=== PATIENT | male | born 1965 | race Caucasian/White ===

== ENCOUNTER 2019-01-10 16:40 | Emergency (ER) | payer OTHER ==
[2019-01-10 16:50] VITALS: TEMP 99.2
[2019-01-10] MEDS ORDERED: IPRATROPIUM-ALBUTEROL 3 ML NEB INHALATION STA (17:08)
[2019-01-10] MEDS ORDERED: methylPREDNISolone SOD SUCCI 125 MG/2 ML VIAL IM ONE (17:08)
--- NOTE | 2019-01-10 17:16 | ED ---
General Adult HPI - General Chief complaint: Shortness of Breath Stated complaint: cough, congestion, shoulder pain Time Seen by Provider: 01/10/19 16:50 Source: patient, RN notes reviewed, old records reviewed Mode of arrival: ambulatory Limitations: no limitations - History of Present Illness Initial comments: This is a 53-year-old male who presents emergency Department with a past medical history significant for smoking. Patient states his is been sick with a upper respiratory infection last few days and the last couple of days he has also started having symptoms. Patient states he short of breath having a cough and coughing up some sputum. Patient states his thought he had a fever last evening. Patient denies any chest pain or palpitations. Patient denies any abdominal pain. Patient states he did not get a flu shot. Patient denies any nausea vomiting or diarrhea. Patient denies any leg swelling or calf tenderness. - Related Data Home Medications Medication Instructions Recorded Confirmed ALPRAZolam [Xanax] 2 mg PO HS 06/22/14 05/31/15 oxyCODONE-APAP 10-325MG [Percocet 10 mg PO Q6HR PRN 06/22/14 05/31/15 10-325] Previous Rx's Medication Instructions Recorded HYDROcodone/APAP 7.5-325MG [[place] 1 each PO Q4H PRN #60 tab 05/31/15 7.5] Azithromycin [Zithromax Tri-Arnaud] 500 mg PO DAILY #3 tab 01/10/19 predniSONE 40 mg PO DAILY #8 tab 01/10/19 Allergies Allergy/AdvReac Type Severity Reaction Status Date / Time tramadol AdvReac Hallucinati Verified 01/10/19 16:50 ons Review of Systems ROS Statement: Those systems with pertinent positive or pertinent negative responses have been documented in the HPI. ROS Other: All systems not noted in ROS Statement are negative. Past Medical History Past Medical History: Musculoskeletal Disorder Additional Past Medical History / Comment(s): neida. hernias History of Any Multi-Drug Resistant Organisms: None Reported Past Surgical History: No Surgical Hx Reported Additional Past Surgical History / Comment(s): colonoscopy Past Anesthesia/Blood Transfusion Reactions: No Reported Reaction Past Psychological History: No Psychological Hx Reported Smoking Status: Current every day smoker Past Alcohol Use History: None Reported Past Drug Use History: None Reported - Past Family History Mother Family Medical History: No Reported History General Exam - General Exam Comments Initial Comments: GENERAL: Patient is well-developed and well-nourished. Patient is nontoxic and well- hydrated and is in mild distress. ENT: Neck is soft and supple. No significant lymphadenopathy is noted. Oropharynx is clear. Moist mucous membranes. Neck has full range of motion without eliciting any pain. EYES: The sclera were anicteric and conjunctiva were pink and moist. Extraocular movements were intact and pupils were equal round and reactive to light. Eyelids were unremarkable. PULMONARY: She has diffuse expiratory wheezing CARDIOVASCULAR: There is a regular rate and rhythm without any murmurs gallops or rubs. ABDOMEN: Soft and nontender with normal bowel sounds. SKIN: Skin is clear with no lesions or rashes and otherwise unremarkable. NEUROLOGIC: Patient is alert and oriented x3. Cranial nerves II through XII are grossly intact. Motor and sensory are also intact. Normal speech, volume and content. Symmetrical smile. MUSCULOSKELETAL: Normal extremities with adequate strength and full range of motion. No lower extremity swelling or edema. No calf tenderness. LYMPHATICS: No significant lymphadenopathy is noted PSYCHIATRIC: Normal psychiatric evaluation. Limitations: no limitations Course Vital Signs 01/10/19 01/10/19 01/10/19 16:48 17:17 17:22 Temperature 99.2 F Pulse Rate 91 80 Respiratory 20 16 Rate Blood Pressure 118/77 O2 Sat by Pulse 91 L Oximetry 01/10/19 17:31 Temperature Pulse Rate 80 Respiratory Rate Blood Pressure O2 Sat by Pulse Oximetry Medical Decision Making - Medical Decision Making EKG shows normal sinus rhythm at 76 bpm UT interval 140 dresses 88 QT interval 360 QTC is 405. Patient's EKG shows no ST segment elevation or depression. Chest x-ray shows no acute abnormalities. I will begin to reevaluate the patient after he received some steroids and alb uterol treatment. He was feeling much better and his wheezing was just scattered this time. I discussed smoking cessation for greater than 3 minutes. The risks of smoking were discussed with the patient including but not limited to risks of cancer, stroke, coronary artery disease and COPD. Also discussed with the patient were multiple methods of quitting smoking. Lastly we discussed the financial costs of smoking. - Lab Data Lab Results 01/10/19 Range/Units 17:19 Influenza Type A RNA Not Detected (Not Detectd) Influenza Type B (PCR) Not Detected (Not Detectd) Disposition Clinical Impression: Acute bronchitis with bronchospasm Disposition: HOME SELF-CARE Condition: Good Instructions (If sedation given, give patient instructions): Acute Bronchitis (ED), Bronchospasm (ED) Prescriptions: predniSONE 40 mg PO DAILY #8 tab Azithromycin [Zithromax Tri-Arnaud] 500 mg PO DAILY #3 tab Is patient prescribed a controlled substance at d/c from ED?: No Referrals: Juan Manuel Emanuel DO [Primary Care Provider] - 1-2 days Time of Disposition: 18:35
--- NOTE | 2019-01-10 18:19 | XR ---
EXAMINATION TYPE: XR chest 2V DATE OF EXAM: 01/10/2019 COMPARISON: NONE HISTORY: Cough and congestion TECHNIQUE: Frontal and lateral views of the chest are obtained. FINDINGS: Heart is normal. Lungs are clear of infiltrate. There is no heart failure. There is flatte saida of the diaphragm. There are no hilar masses. IMPRESSION: There is some COPD. Right upper lobe emphysema. No acute lung disease. Normal heart.
[2019-01-10] MEDS ORDERED: cefTRIAXone 1,000 MG VIAL (IM USE) IM STA (18:32)
[2019-01-10 18:55] VITALS: BP 115/74; PULSE 81; RESP 18
== END 2019-01-10 18:54 | disposition home or self-care (01) ==
LOC: EC 16:40
DX: J20.9 Acute bronchitis, unspecified (principal); F17.200 Nicotine dependence, unspecified, uncomplicated; Z71.6 Tobacco abuse counseling; Z88.6 Allergy status to analgesic agent
CPT/HCPCS: 94640; 93005; 87502; 71046; 96372 ×2; 99285; J2930; J0696